=== PATIENT | male | born 1995 | race African-American/Black ===

== ENCOUNTER 2016-05-21 00:39 | Emergency (ER) | payer OTHER ==
[~2016-05-21] VITALS: Ht 180.3 cm; Wt 85.0 kg
[2016-05-21 00:41] VITALS: BP 131/75; PULSE 64; RESP 16; TEMP 97.6; O2SAT 95
[2016-05-21] MEDS ORDERED: KETOROLAC TROMETHAMINE 30 MG/ML (IVP) VIAL IV PUSH ONE (01:00)
[2016-05-21] MEDS ORDERED: SODIUM CHLORIDE 0.9% FLUSH 5 ML FLUSH IVF PRN (01:00)
--- NOTE | 2016-05-21 01:01 | PD ---
HPI Chief Complaint: Respiratory Symptoms Time Seen by Provider: 00:57 Travel History International Travel<30 days: No Contact w/Intl Traveler<30days: No Traveled to known affect area: No History of Present Illness HPI 20-year-old male with no significant past medical history, here for evaluation of cough, sharp left-sided chest pain. Patient states that the symptoms started at around 8:00 PM. Cough is nonproductive. No fevers or chills. He reports that when he coughs and when he takes a deep breath he feels sharp left lateral chest pain that radiates up into his neck. Mild dyspnea. No hemoptysis. No history of DVT or PE. No known history of cardiac disease. PFSH Past Medical History Medical History: Denies Significant Hx Diminished Hearing: No Immunizations Current: Yes Past Surgical History Surgical History: No Previous Surgery Social History Alcohol Use: No Tobacco Use: No (yrs ago) Substance Use: No Allergies-Medications (Allergen,Severity, Reaction): Coded Allergies: No Known Allergies (Unverified , 05/21/16) Reported Meds & Prescriptions Reported Meds & Active Scripts Active No Active Prescriptions or Reported Medications Review of Systems Except as stated in HPI: all other systems reviewed are Neg Physical Exam Narrative GENERAL: Well-developed, well-nourished, comfortable, no acute distress. SKIN: Warm and dry. No rash. HEAD: Atraumatic. Normocephalic. EYES: Pupils equal and round. No scleral icterus. No injection or drainage. ENT: Mucous membranes pink and moist. NECK: Trachea midline. No JVD. CARDIOVASCULAR: Regular rate and rhythm. No murmur appreciated. RESPIRATORY: No accessory muscle use. Clear to auscultation. Breath sounds equal bilaterally. GASTROINTESTINAL: Abdomen soft, non-tender, nondistended. MUSCULOSKELETAL: No obvious deformities. No clubbing. No cyanosis. No edema. NEUROLOGICAL: Awake and alert. No obvious cranial nerve deficits. Motor grossly within normal limits. Normal speech. PSYCHIATRIC: Appropriate mood and affect; insight and judgment normal. Data Data Last Documented VS Vital Signs Date Time Temp Pulse Resp B/P Pulse Ox O2 Delivery O2 Flow Rate FiO2 05/21/16 01:08 16 99 Room Air 05/21/16 00:41 97.6 64 131/75 Orders Complete Blood Count With Diff (05/21/16 00:59) Comprehensive Metabolic Panel (05/21/16 00:59) D-Dimer (05/21/16 00:59) Act Partial Throm Time (Ptt) (05/21/16 00:59) Prothrombin Time / Inr (Pt) (05/21/16 00:59) Ckmb (Isoenzyme) Profile (05/21/16 00:59) Troponin I (05/21/16 00:59) Iv Access Insert/Monitor (05/21/16 00:59) Electrocardiogram (05/21/16 00:59) Ecg Monitoring (05/21/16 00:59) Oximetry (05/21/16 00:59) Oxygen Administration (05/21/16 00:59) Chest, Single Ap (05/21/16 00:59) Sodium Chloride 0.9% Flush (Ns Flush) (05/21/16 01:00) Influenzae A/B Antigen (05/21/16 00:59) Ketorolac Inj (Toradol Inj) (05/21/16 01:00) CKMB (05/21/16 01:00) CKMB% (05/21/16 01:00) Labs Laboratory Tests Test 05/21/16 01:00 White Blood Count 5.5 TH/MM3 Red Blood Count 5.08 MIL/MM3 Hemoglobin 15.6 GM/DL Hematocrit 45.0 % Mean Corpuscular Volume 88.5 FL Mean Corpuscular Hemoglobin 30.6 PG Mean Corpuscular Hemoglobin 34.6 % Concent Red Cell Distribution Width 13.5 % Platelet Count 192 TH/MM3 Mean Platelet Volume 8.9 FL Neutrophils (%) (Auto) 44.0 % Lymphocytes (%) (Auto) 47.1 % Monocytes (%) (Auto) 7.3 % Eosinophils (%) (Auto) 1.4 % Basophils (%) (Auto) 0.2 % Neutrophils # (Auto) 2.4 TH/MM3 Lymphocytes # (Auto) 2.6 TH/MM3 Monocytes # (Auto) 0.4 TH/MM3 Eosinophils # (Auto) 0.1 TH/MM3 Basophils # (Auto) 0.0 TH/MM3 CBC Comment DIFF FINAL Differential Comment Prothrombin Time 11.3 SEC Prothromb Time International 1.0 RATIO Ratio Activated Partial 28.6 SEC Thromboplast Time D-Dimer Quantitative (PE/DVT) LESS THAN 0.19 MG/L FEU Sodium Level 138 MEQ/L Potassium Level 3.7 MEQ/L Chloride Level 104 MEQ/L Carbon Dioxide Level 27.8 MEQ/L Anion Gap 6 MEQ/L Blood Urea Nitrogen 19 MG/DL Creatinine 1.31 MG/DL Estimat Glomerular Filtration 83 ML/MIN Rate Random Glucose 96 MG/DL Calcium Level 8.9 MG/DL Total Bilirubin 0.3 MG/DL Aspartate Amino Transf 21 U/L (AST/SGOT) Alanine Aminotransferase 43 U/L (ALT/SGPT) Alkaline Phosphatase 62 U/L Total Creatine Kinase 414 U/L Creatine Kinase MB 3.5 NG/ML Creatine Kinase MB % 0.8 % Troponin I LESS THAN 0.02 NG/ML Total Protein 7.5 GM/DL Albumin 4.2 GM/DL [facility] Medical Decision Making Medical Screen Exam Complete: Yes Emergency Medical Condition: Yes Medical Record Reviewed: Yes Interpretation(s) EKG: Sinus, rate 58, normal axis, normal intervals, early repolarization, no acute ischemic abnormalities. Differential Diagnosis Pneumonia, PE, pleurisy, pericarditis, ACS less likely, musculoskeletal pain Narrative Course Vital signs show heart rate 64, blood pressure 131/75, pulse ox 99% on room air , oral temp of 97.6F. CBC is unremarkable. CMP is markable for BUN 19, creatinine 1.3, GFR 83, otherwise unremarkable. Cardiac enzymes are negative. D-dimer is less than 0.19. Chest x-ray read as clear lungs. The patient is sleeping comfortably. He was made aware of all findings. I do not believe his pain is cardiac in nature. D-dimer is negative. Pain sounds more like pleurisy. It is somewhat improved with Toradol. At this point I believe he is stable for discharge home with outpatient follow-up with a primary care physician this week. I will discharge him home with a prescription for Naprosyn. He was informed on when to return to the emergency department. He verbalizes understanding and agreement with plan. Diagnosis Primary Impression: Pleurisy Referrals: Primary Care Physician 3 days Additional Instructions: Follow-up with a primary care physician this week. Return to the emergency department for worsening symptoms or any other concerns. Scripts Naproxen (Naprosyn)500 Mg [id number] Mg PO BID 7 Days Ref 0 Prov:Raj Soria MD 05/21/16 Disposition: DISCHARGE HOME Condition: Stable Raj Soria MD May 21, 2016 01:01
[2016-05-21 01:08] VITALS: RESP 16; O2SAT 99
--- NOTE | 2016-05-21 01:20 | RADRPT ---
EXAM DATE/TIME: 05/21/2016 01:08 [facility] COMPARISON: CHEST SINGLE AP, February 17, 2014, 19:51. INDICATIONS : Pt having SOB and chest pressure x 1 day. MEDICAL HISTORY : None. SURGICAL HISTORY : None. ENCOUNTER: Initial ACUITY: 1 day PAIN SCORE: 7/10 LOCATION: Bilateral chest FINDINGS: A single view of the chest demonstrates the lungs to be symmetrically aerated without evidence of mas s, infiltrate or effusion. The cardiomediastinal contours are unremarkable. Osseous structures are intact. CONCLUSION: The lungs are clear. Ellis Gil MD on May 21, 2016 at 1:18 Board Certified Radiologist. This report was verified electronically.
[2016-05-21 01:43] LABS: AUTOMATED NEUTROPHIL # 2.4 TH/MM3 (1.8-7.7); BASOPHIL % 0.2 % (0.0-2.0); EOSINOPHIL # 0.1 TH/MM3 (0-0.4); EOSINOPHIL % 1.4 % (0.0-4.0); HEMO FLAGS DIFF FINAL; LYMPH % 47.1 % (9.0-44.0); LYMPHOCYTE # 2.6 TH/MM3 (1.0-4.8); MEAN CELL VOLUME 88.5 FL (80.0-100.0); MEAN CORPUSCULAR HEMOGLOBIN 30.6 PG (27.0-34.0); MEAN CORPUSCULAR HGB CONC 34.6 % (32.0-36.0); MONO % 7.3 % (0.0-8.0); PLATELET COUNT 192 TH/MM3 (150-450); RED BLOOD COUNT 5.08 MIL/MM3 (4.50-5.90); RED CELL DISTRIBUTION WIDTH 13.5 % (11.6-17.2); WHITE BLOOD COUNT 5.5 TH/MM3 (4.0-11.0)
[2016-05-21 01:52] LABS: APTT (PATIENT) 28.6 SEC (24.3-30.1); PROTHROMBIN TIME - PATIENT 11.3 SEC (9.8-11.6)
[2016-05-21 01:58] LABS: ALT (GPT) 43 U/L (12-78); ANION GAP 6 MEQ/L (5-15); AST (GOT) 21 U/L (15-37); BICARBONATE 27.8 MEQ/L (21.0-32.0); BLOOD UREA NITROGEN 19 MG/DL (7-18); CHLORIDE 104 MEQ/L (98-107); GLOMERULAR FILTRATION RATE 83 ML/MIN (>89); POTASSIUM 3.7 MEQ/L (3.5-5.1); SODIUM (NA) 138 MEQ/L (136-145)
[2016-05-21 02:01] LABS: ALKALINE PHOSPHATASE 62 U/L (45-117); CREATINE KINASE 414 U/L (39-308); TOTAL BILIRUBIN ADULT 0.3 MG/DL (0.2-1.0)
[2016-05-21 02:14] LABS: CKMB 3.5 NG/ML (0.5-3.6)
[2016-05-21] MEDS ORDERED: NAPR500 PO (02:43)
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
== END 2016-05-21 03:59 | disposition home or self-care (01) ==
LOC: NEPC 00:39
DX: R09.1 Pleurisy (principal); R05 Cough
CPT/HCPCS: 71010; 80053; 82550; 82552; 84484; 85025; 85379; 85610; 85730; 87804; 93005; 96374; 99285; J1885

== ENCOUNTER 2016-09-28 16:01 | Observation (INO) | payer OTHER ==
[~2016-09-28] VITALS: Ht 177.8 cm; Wt 93.2 kg
[~2016-09-28 16:01] MED LIST: NAPR500 PO
[2016-09-28 16:15] VITALS: BP 180/92; PULSE 92; RESP 20; TEMP 98.7; O2SAT 98
[2016-09-28] MEDS ORDERED: SODIUM CHLOR 0.9% 1000 ML INJ 1,000 ML IV SCH (16:22)
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
[2016-09-28 16:40] VITALS: BP 155/78; PULSE 61; RESP 16; O2SAT 100
[2016-09-28 17:08] LABS: APTT (PATIENT) 23.2 SEC (24.3-30.1); PROTHROMBIN TIME - PATIENT 11.4 SEC (9.8-11.6)
[2016-09-28 17:15] LABS: BICARBONATE 23.1 MEQ/L (21.0-32.0)
[2016-09-28] MEDS ORDERED: IOHEXOL 350 MG/ML 10 ML VIAL (for RAD DIAG) IV ONE (17:37)
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
[2016-09-28 19:12] VITALS: BP 174/85; PULSE 82; RESP 18; O2SAT 99
[2016-09-28 19:31] LABS: AUTOMATED NEUTROPHIL # 5.1 TH/MM3 (1.8-7.7); BASOPHIL # 0.1 TH/MM3 (0-0.2); BASOPHIL % 0.7 % (0.0-2.0); EOSINOPHIL % 0.3 % (0.0-4.0); HEMATOCRIT 44.2 % (39.0-51.0); HEMO FLAGS DIFF FINAL; LYMPH % 27.4 % (9.0-44.0); LYMPHOCYTE # 2.2 TH/MM3 (1.0-4.8); MEAN CELL VOLUME 88.8 FL (80.0-100.0); MEAN CORPUSCULAR HEMOGLOBIN 30.8 PG (27.0-34.0); MEAN CORPUSCULAR HGB CONC 34.7 % (32.0-36.0); MONO % 7.5 % (0.0-8.0); NEUT % 64.1 % (16.0-70.0); PLATELET COUNT 189 TH/MM3 (150-450); RED BLOOD COUNT 4.98 MIL/MM3 (4.50-5.90); RED CELL DISTRIBUTION WIDTH 13.5 % (11.6-17.2); WHITE BLOOD COUNT 7.9 TH/MM3 (4.0-11.0)
[2016-09-28] MEDS ORDERED: NALOXONE HCL 0.4 MG/ML AMP IV PRN (21:30)
[2016-09-28 22:26] VITALS: BP 130/67; PULSE 62; RESP 16; O2SAT 98
[2016-09-28] MEDS: SODIUM CHLOR 0.9% 1000 ML INJ 1,000 ML IV SCH (22:27)
[2016-09-28 23:43] VITALS: BP 136/65; PULSE 54; RESP 18; TEMP 98.9; O2SAT 98
[2016-09-29] VITALS (8 sets, daily range): BP systolic 119–145; BP diastolic 50–96; PULSE 53–76; RESP 16–20; TEMP 97.3–98.5; O2SAT 95–100
[2016-09-29] MEDS ORDERED: ACETAMINOPHEN 325 MG TAB PO ONE (00:15)
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
[2016-09-29] MEDS: KETOROLAC TROMETHAMINE 30 MG/ML (IVP) VIAL IV PUSH PRN ×2 (07:15→17:16)
[2016-09-29] MEDS: SODIUM CHLOR 0.9% 1000 ML INJ 1,000 ML IV SCH ×2 (08:30→17:23)
[2016-09-29] MEDS: SODIUM CHLORIDE 0.9% FLUSH 10 ML FLUSH IV FLUSH SCH ×2 (08:43→21:00)
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
[2016-09-29] MEDS ORDERED: PANTOPRAZOLE SODIUM 40 MG VIAL IV PUSH SCH (18:30)
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
[2016-09-29 18:38] LABS: AUTOMATED NEUTROPHIL # 2.6 TH/MM3 (1.8-7.7); BASOPHIL % 0.8 % (0.0-2.0); EOSINOPHIL # 0.1 TH/MM3 (0-0.4); HEMATOCRIT 44.3 % (39.0-51.0); HEMO FLAGS DIFF FINAL; LYMPH % 34.5 % (9.0-44.0); LYMPHOCYTE # 1.6 TH/MM3 (1.0-4.8); MEAN CELL VOLUME 91.2 FL (80.0-100.0); MEAN CORPUSCULAR HEMOGLOBIN 29.9 PG (27.0-34.0); MEAN CORPUSCULAR HGB CONC 32.8 % (32.0-36.0); MONO % 7.6 % (0.0-8.0); NEUT % 55.1 % (16.0-70.0); PLATELET COUNT 171 TH/MM3 (150-450); RED BLOOD COUNT 4.86 MIL/MM3 (4.50-5.90); RED CELL DISTRIBUTION WIDTH 13.8 % (11.6-17.2); WHITE BLOOD COUNT 4.7 TH/MM3 (4.0-11.0)
[2016-09-29] MEDS ORDERED: methylPREDNISolone SOD SUCC 125 MG/2 ML VIAL IV PUSH ONE (19:00)
[2016-09-29 19:20] LABS: ANION GAP 7 MEQ/L (5-15); BLOOD UREA NITROGEN 16 MG/DL (7-18); CHLORIDE 107 MEQ/L (98-107); GLOMERULAR FILTRATION RATE 71 ML/MIN (>89); SODIUM (NA) 141 MEQ/L (136-145)
[2016-09-29 19:26] LABS: POTASSIUM 4.2 MEQ/L (3.5-5.1)
[2016-09-29 22:09] LABS: AMPHETAMINE, URINE NEG (NEG); BARBITURATES, URINE NEG (NEG); COCAINE, URINE NEG (NEG)
[2016-09-30 00:05] VITALS: BP 142/65; PULSE 81; RESP 20; O2SAT 95
[2016-09-30] MEDS: KETOROLAC TROMETHAMINE 30 MG/ML (IVP) VIAL IV PUSH SCH ×2 (00:15→06:05)
[2016-09-30] MEDS: SODIUM CHLORIDE 0.9% FLUSH 10 ML FLUSH IV FLUSH PRN ×2 (00:15→06:04)
[2016-09-30 04:33] VITALS: BP 154/85; PULSE 69; RESP 20; O2SAT 97
[2016-09-30 08:00] VITALS: PULSE 81
[2016-09-30 08:41] VITALS: BP_SYST 154; BP_SYST 169; BP_DIAS 115; BP_DIAS 79; PULSE 88; RESP 18; TEMP 98.6; O2SAT 96
[2016-09-30] MEDS: SODIUM CHLORIDE 0.9% FLUSH 10 ML FLUSH IV FLUSH SCH (09:00)
[2016-09-30] MEDS ORDERED: ONDA4TAB6 PO (09:22)
[2016-09-30] MEDS ORDERED: KETO10 PO (09:22)
[2016-09-30] MEDS ORDERED: ZANTTAB PO (09:22)
[2016-09-30] MEDS ORDERED: WALKER/ADULT/FO1 MIS (09:23)
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
== END 2016-09-30 12:15 | disposition home or self-care (01) ==
LOC: NEPC 16:01 → NEDA 20:56 → NEPGCP 23:15
PROVIDERS: ADMIT Hospitalist; ATTEND Hospitalist
DX: [UNRECOGNIZED DIAGNOSIS CODE] (principal); E812.0; E849.5
CPT/HCPCS: 70450; 71260; 72125; 73030; 73200; 73564; 73700; 74177; 80048; 80307; 85025; 85610; 85730; 96360; 96361; 97162; 99285; C9113; G0378; G8987; G8988; J1885; J2930; J7030; L1830; Q9967